=== PATIENT | male | born 1990 | race Caucasian/White ===

== ENCOUNTER 2018-07-19 20:29 | Emergency (ER) | payer OTHER ==
[~2018-07-19] VITALS: Ht 182.9 cm; Wt 111.1 kg
[2018-07-19 20:35] VITALS: BP 115/64
--- NOTE | 2018-07-19 20:35 | NUR ---
TO BED # 11 AMBULATORY
--- NOTE | 2018-07-19 20:40 | NUR ---
28 YO MALE BIB SELF FOR C/O R MIDDLE FINGER PAIN; PT STATES HE WAS FINGER WRESTLING WITH RELATIVE AND HEARD A POPPING SOUND. PT DENIES NUMBNESS OR TINGLING SENSATION. SKIN WARM DRY PINK INTACT. VSS. XRAY @ BEDSIDE. PRABHU LOCKED IN LOWEST POSITION. WILL CONTINUE TO OBSERVE. DENIES MED HX DENIES ALLERGIES
--- NOTE | 2018-07-19 22:17 | NUR ---
Dr. Lopez evaluating patient at bedside.
[2018-07-19 22:40] VITALS: BP 115/64
== END 2018-07-19 22:40 | disposition home or self-care (01) ==
LOC: MED 20:29
DX: S62.612A Displaced fracture of proximal phalanx of right middle finger, initial encounter for closed fracture (principal); F17.200 Nicotine dependence, unspecified, uncomplicated; X58.XXXA Exposure to other specified factors, initial encounter; Y93.89 Activity, other specified; Y92.89 Other specified places as the place of occurrence of the external cause; Y99.8 Other external cause status
CPT/HCPCS: 29130; 73140; 99283; Q0092

== ENCOUNTER 2018-08-17 00:40 | Emergency (ER) | payer OTHER ==
[~2018-08-17] VITALS: Ht 182.9 cm; Wt 105.2 kg
[2018-08-17 00:50] VITALS: BP 126/78
--- NOTE | 2018-08-17 00:57 | NUR ---
28 Y/O MALE PRESENTS TO ED WITH JACOB PAIN AND GENERALLY FEELING ILL X12 HRS. PT STATES WORKING IN HEAT AND COLD. 6/10 JACOB PAIN. RHINITIS. TACHY AT 114. STATES NOT DRINKING ENOUGH FLUIDS DURING DAYTIME. ER MD AWARE. CONTINUE TO MONITOR.
--- NOTE | 2018-08-17 00:57 | NUR ---
PATIENT AMBULATED TO ER BED 11.
[2018-08-17] MEDS ORDERED: KETOROLAC 15 MG/ML VIAL IVP ONE (01:15)
[2018-08-17] MEDS ORDERED: NACL 0.9% 500 ML IV ONE (01:15)
[2018-08-17] MEDS ORDERED: KETOROLAC 60 MG/2 ML VIAL IM ONE (01:29)
[2018-08-17 02:49] VITALS: BP 126/78
--- NOTE | 2018-08-17 02:49 | NUR ---
DISCHARGE PAPERS GIVEN TO PT. INSTRUCTED TO INCREASE FLUIDS AT HOME. PT STATES 0/10 JACOB PAIN AND FEELING MUCH BETTER. INSTRUCTED TO F/U WITH PCP AND WHEN TO RETURN TO ER. PT VERBALLIZED UNDERSTANDING OF DC INSTRUCTIONS. ALL QUESTIONS ANSWERED.
== END 2018-08-17 02:49 | disposition home or self-care (01) ==
LOC: MED 00:40
DX: T67.0XXA Heatstroke and sunstroke, initial encounter (principal); E86.0 Dehydration; F17.200 Nicotine dependence, unspecified, uncomplicated; X32.XXXA Exposure to sunlight, initial encounter; Y93.89 Activity, other specified; Y92.89 Other specified places as the place of occurrence of the external cause; Y99.8 Other external cause status
CPT/HCPCS: 96361; 96374; 99283; J1885; J7030

== ENCOUNTER 2018-10-13 05:13 | Emergency (ER) | payer OTHER ==
[~2018-10-13] VITALS: Ht 182.9 cm; Wt 106.6 kg
[2018-10-13 05:23] VITALS: BP 115/78
--- NOTE | 2018-10-13 05:23 | NUR ---
PT AMBULATED TO BED 2
--- NOTE | 2018-10-13 05:34 | NUR ---
L MIDDLE FINGER PAIN 7/10, ACHING. PT STATES HE INJURED HIS FINGER AT THE PLAYGROUND. SWELLING NOTED ON INJURED FINGER. LIMITED ROM. BILAT EQUAL RADIAL PULSES. PT DENIES ANY MEDICAL HX. 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 PT VSS. ERMD AWARE. WILL CONTINUE TO MONITOR.
[2018-10-13 06:52] VITALS: BP 121/71
--- NOTE | 2018-10-13 07:00 | NUR ---
PT LEFT AND SIGNED AMA. PT VERBALIZED UNDERSTANDING AMA. TOLD PT WHEN TO RETURN TO ED.
== END 2018-10-13 07:00 | disposition left against medical advice (07) ==
LOC: MED 05:13
DX: M79.645 Pain in left finger(s) (principal); W22.8XXA Striking against or struck by other objects, initial encounter; Y93.89 Activity, other specified; Y92.89 Other specified places as the place of occurrence of the external cause; Y99.8 Other external cause status
CPT/HCPCS: 99283

== ENCOUNTER 2019-02-09 18:21 | Emergency (ER) | payer SELFPAY ==
[~2019-02-09] VITALS: Ht 182.9 cm; Wt 108.9 kg
[2019-02-09 18:42] VITALS: BP 108/61
--- NOTE | 2019-02-09 18:53 | NUR ---
NO ROOM AVAILABLE AT THIS TIME. PT SENT TO THE LOBBY. RAIMUNDO FREGOSO AWARE OF PT STATUS.
[2019-02-09] MEDS ORDERED: ACETAMINOPHEN 325 MG TAB PO ONE (18:55)
--- NOTE | 2019-02-09 19:39 | NUR ---
PT AMBULATED TO ER BED 4
--- NOTE | 2019-02-09 19:39 | NUR ---
PT TAKEN TO BED 4
--- NOTE | 2019-02-09 19:57 | NUR ---
28 Y/O MALE BIB SELF FOR DRY PERSISTENT COUGHT X 2 DAYS. PT C/O SOB AND 5/10 ACHING PAIN IN ABD. PT STATED ABD PAIN PROVOKED BY COUGH. RESPIRATIONS ARE EVEN ANAD UNLABORED. NO ACCESSORY MUSCLE USE. LUNG SOUNDS CLEAR THROUGHOUT. PT PRESENTS AFEBRILE AT THIS TIME. PT SITTING IN BED POSITIONED FOR COMFORT X 1 SIDERAIL. VSS. MEDHX: DENIES ALLERGIES: NKA
--- NOTE | 2019-02-09 20:13 | NUR ---
INFLUENZA SWAB COLLECTED AT THIS TIME.
--- NOTE | 2019-02-09 20:47 | NUR ---
DR THORNTON AT BEDSIDE.
[2019-02-09 21:04] VITALS: BP 108/61
--- NOTE | 2019-02-09 21:05 | NUR ---
Patient discharged with v/s stable. Written and verbal after care instructions given and explained. Patient alert, oriented and verbalized understanding of instructions. Ambulatory with steady gait. All questions addressed prior to discharge. ID band removed. Patient advised to follow up with PMD. Rx of TAMIFLU, PROMETHAZINE given. Patient educated on indication of medication including possible reaction and side effects. Opportunity to ask questions provided and answered.
== END 2019-02-09 21:05 | disposition home or self-care (01) ==
LOC: MED 18:21
DX: J11.1 Influenza due to unidentified influenza virus with other respiratory manifestations (principal)
CPT/HCPCS: 87804; 99283